=== PATIENT | female | born 1980 | race African-American/Black ===

== ENCOUNTER 2018-05-19 15:20 | Emergency (ER) | payer OTHER ==
[~2018-05-19] VITALS: Ht 160 cm; Wt 112.5 kg
[~2018-05-19 15:20] MED LIST: PRED50TA PO
[2018-05-19] MEDS ORDERED: IV NORMAL SALINE 1000ML BAG 1,000 ML IV ONE (15:30)
--- NOTE | 2018-05-19 15:39 | PHYS DOC ---
Past Medical History Past Medical History: High Cholesterol, Hypertension Additional Past Medical Histor: "pre diabetic", sleep apnea Past Surgical History: , Tubal ligation Alcohol Use: None Drug Use: None Adult General Chief Complaint Chief Complaint: NAUSEA/VOMITING/DIARRHA HPI HPI Patient is a 37 year old female with history of hypertension, high cholesterol , who presents to the ED today complaining of nausea, vomiting, diarrhea, abdominal cramping, symptoms began a couple minutes prior to coming to the ED. Patient works at [employer] in the [employer]. Patient denies any fever, denies any hematemesis or melena. Review of Systems Review of Systems Constitutional: Denies fever or chills [] Eyes: Denies change in visual acuity, redness, or eye pain [] HENT: Denies nasal congestion or sore throat [] Respiratory: Denies cough or shortness of breath [] Cardiovascular: No additional information not addressed in HPI [] GI: Reports abdominal cramping, nausea vomiting and diarrhea : Denies dysuria or hematuria [] Musculoskeletal: Denies back pain or joint pain [] Integument: Denies rash or skin lesions [] Neurologic: Denies headache, focal weakness or sensory changes [] All other systems were reviewed and found to be within normal limits, except as documented in this note. Current Medications Current Medications Current Medications Medications (Trade) Dose Ordered Sig/Rj Start Time Stop Time Status Last Admin Dose Admin Dicyclomine HCl (Bentyl) 20 mg 1X ONCE 05/19/18 15:45 05/19/18 15:46 DC 05/19/18 15:57 20 MG Famotidine (Pepcid Vial) 20 mg 1X ONCE 05/19/18 15:45 05/19/18 15:46 DC 05/19/18 15:51 20 MG Ondansetron HCl (Zofran) 4 mg 1X ONCE 05/19/18 15:45 05/19/18 15:46 DC 05/19/18 15:54 4 MG Sodium Chloride 1,000 ml @ 1,000 mls/hr 1X ONCE 05/19/18 15:30 05/19/18 16:29 DC 05/19/18 15:46 1,000 MLS/HR Allergies Allergies Allergies Coded Allergies Type Severity Reaction Last Updated Verified No Known Drug Allergies 05/16/13 No Physical Exam Physical Exam Constitutional: Well developed, well nourished, no acute distress, non-toxic appearance. [] HENT: Normocephalic, atraumatic, bilateral external ears normal, oropharynx moist, no oral exudates, nose normal. [] Eyes: PERRLA, EOMI, conjunctiva normal, no discharge. [] Neck: Normal range of motion, no tenderness, supple, no stridor. [] Cardiovascular:Heart rate regular rhythm, no murmur [] Lungs & Thorax: Bilateral breath sounds clear to auscultation [] Abdomen: Bowel sounds normal, soft, no tenderness, no masses, no pulsatile masses. [] Skin: Warm, dry, no erythema, no rash. [] Back: No tenderness, no CVA tenderness. [] Extremities: No tenderness, no cyanosis, no clubbing, ROM intact, no edema. [] Neurologic: Alert and oriented X 3, normal motor function, normal sensory function, no focal deficits noted. [] Psychologic: Affect normal, judgement normal, mood normal. [] Current Patient Data Vital Signs Vital Signs Date Time Temp Pulse Resp B/P (MAP) Pulse Ox O2 Delivery O2 Flow Rate FiO2 05/19/18 17:39 83 16 172/85 (114) 99 Room Air 05/19/18 15:26 98.1 98.1 Lab Values Laboratory Tests Test 05/19/18 16:30 05/19/18 17:35 White Blood Count 11.1 x10^3/uL (4.0-11.0) H Red Blood Count 4.68 x10^6/uL (3.50-5.40) Hemoglobin 13.4 g/dL (12.0-15.5) Hematocrit 42.5 % (36.0-47.0) Mean Corpuscular Volume 91 fL (79-100) Mean Corpuscular Hemoglobin 29 pg (25-35) Mean Corpuscular Hemoglobin Concent 32 g/dL (31-37) Red Cell Distribution Width 13.8 % (11.5-14.5) Platelet Count 337 x10^3/uL (140-400) Neutrophils (%) (Auto) 75 % (31-73) H Lymphocytes (%) (Auto) 19 % (24-48) L Monocytes (%) (Auto) 6 % (0-9) Eosinophils (%) (Auto) 0 % (0-3) Basophils (%) (Auto) 0 % (0-3) Neutrophils # (Auto) 8.3 x10^3uL (1.8-7.7) H Lymphocytes # (Auto) 2.1 x10^3/uL (1.0-4.8) Monocytes # (Auto) 0.6 x10^3/uL (0.0-1.1) Eosinophils # (Auto) 0.0 x10^3/uL (0.0-0.7) Basophils # (Auto) 0.0 x10^3/uL (0.0-0.2) Sodium Level 138 mmol/L (136-145) Potassium Level 4.5 mmol/L (3.5-5.1) Chloride Level 103 mmol/L (98-107) Carbon Dioxide Level 24 mmol/L (21-32) Anion Gap 11 (6-14) Blood Urea Nitrogen 12 mg/dL (7-20) Creatinine 0.9 mg/dL (0.6-1.0) Estimated GFR (Cockcroft-Gault) 85.2 BUN/Creatinine Ratio 13 (6-20) Glucose Level 123 mg/dL (70-99) H Calcium Level 9.1 mg/dL (8.5-10.1) Total Bilirubin 0.3 mg/dL (0.2-1.0) Aspartate Amino Transferase (AST) 17 U/L (15-37) Alanine Aminotransferase (ALT) 21 U/L (14-59) Alkaline Phosphatase 115 U/L (46-116) Total Protein 8.4 g/dL (6.4-8.2) H Albumin 3.8 g/dL (3.4-5.0) Albumin/Globulin Ratio 0.8 (1.0-1.7) L Lipase 77 U/L (73-393) Ethyl Alcohol Level < 10 mg/dL (0-10) Urine Collection Type Void Urine Color Yellow Urine Clarity Clear Urine pH 6.0 Urine Specific [place]arlan 1.020 Urine Protein Negative mg/dL (NEG-TRACE) Urine Glucose (UA) Negative mg/dL (NEG) Urine Ketones (Stick) Negative mg/dL (NEG) Urine Blood Negative (NEG) Urine Nitrite Negative (NEG) Urine Bilirubin Negative (NEG) Urine Urobilinogen Dipstick 0.2 mg/dL (0.2 mg/dL) Urine Leukocyte Esterase Negative (NEG) Urine RBC 0 /HPF (0-2) Urine WBC 0 /HPF (0-4) Urine Squamous Epithelial Cells Occ /LPF Urine Bacteria 0 /HPF (0-FEW) Urine Mucus Slight /LPF Urine Opiates Screen Neg (NEG) Urine Methadone Screen Neg (NEG) Urine Barbiturates Neg (NEG) Urine Phencyclidine Screen Neg (NEG) Urine Amphetamine/Methamphetamine Pos (NEG) Urine Benzodiazepines Screen Neg (NEG) Urine Cocaine Screen Pos (NEG) Urine Cannabinoids Screen Neg (NEG) Urine Ethyl Alcohol Neg (NEG) Laboratory Tests 05/19/18 16:30 Laboratory Tests 05/19/18 16:30 EKG EKG [] Radiology/Procedures Radiology/Procedures [] Course & Med Decision Making Course & Med Decision Making Pertinent Labs and Imaging studies reviewed. (See chart for details) This is a 37-year-old female patient presenting to the ED today complaining of nausea vomiting and diarrhea as well as abdominal cramping, symptoms began a couple minutes prior to coming to the ED. Patient is in no distress. She states after further interrogation that she was out last night with a couple friends and they partied very had used drugs including meth and cocaine. She also states they drank Labs are negative for any acute findings. Patient was given a liter of fluid Zofran and Pepcid. Feeling better. Discharged to home. Before she left she was up eating with no distress. Dragon Disclaimer Dragon Disclaimer This electronic medical record was generated, in whole or in part, using a voice recognition dictation system. Departure Departure Impression: Primary Impression: Vomiting and diarrhea Additional Impression: Drug abuse Disposition: 01 HOME, SELF-CARE Condition: STABLE Referrals: NO PCP (PCP) Follow-up with your doctor in 1-2 weeks Patient Instructions: Diarrhea, Nausea and Vomiting Additional Instructions: You were evaluated in the emergency room for nausea vomiting and diarrhea. We put to medications. Take them as prescribed. Follow-up with your doctor in 1-2 weeks. Scripts Ondansetron (ONDANSETRON ODT) 4 Mg Tab.rapdis 1 TAB PO PRN Q6-8HRS, #16 TAB Prov: YANIRA GONZALES TE[employer]VISION INST[employer]ER 05/19/18 Problem Qualifiers YANIRA GONZALES TELEVISION INSTALLER May 19, 2018 15:39
[2018-05-19] MEDS ORDERED: FAMOTIDINE 20 MG/2 ML VIAL IVP ONE (15:45)
[2018-05-19] MEDS ORDERED: ONDANSETRON PF 4 MG/2 ML VIAL. IV ONE (15:45)
[2018-05-19] MEDS ORDERED: DICYCLOMINE HCL 10 MG CAPSULE PO ONE (15:45)
[2018-05-19 16:34] LABS: BASO % 0 % (0-3); EOS % 0 % (0-3); HEMATOCRIT 42.5 % (36.0-47.0); HEMOGLOBIN 13.4 g/dL (12.0-15.5); LYMPH # 2.1 x10^3/uL (1.0-4.8); LYMPH % 19 % (24-48); MEAN CORPUSCULAR HEMOGLOBIN 29 pg (25-35); MEAN CORPUSCULAR HGB CONC 32 g/dL (31-37); MEAN CORPUSCULAR VOLUME 91 fL (79-100); MONO # 0.6 x10^3/uL (0.0-1.1); MONO % 6 % (0-9); NEUT # 8.3 x10^3uL (1.8-7.7); NEUT % 75 % (31-73); PLATELET COUNT 337 x10^3/uL (140-400); RED BLOOD COUNT 4.68 x10^6/uL (3.50-5.40); RED CELL DISTRIBUTION WIDTH 13.8 % (11.5-14.5); WHITE BLOOD COUNT 11.1 x10^3/uL (4.0-11.0)
[2018-05-19 16:42] LABS: CALCIUM 9.1 mg/dL (8.5-10.1); CREATININE 0.9 mg/dL (0.6-1.0); GFR 85.2; POTASSIUM 4.5 mmol/L (3.5-5.1)
[2018-05-19 16:48] LABS: ALBUMIN 3.8 g/dL (3.4-5.0); ALBUMIN/GLOBULIN RATIO 0.8 (1.0-1.7); TOTAL BILIRUBIN 0.3 mg/dL (0.2-1.0); TOTAL PROTEIN 8.4 g/dL (6.4-8.2)
[2018-05-19 17:47] LABS: BILIRUBIN,URINE NEGATIVE (NEG); CLARITY,URINE CLEAR; COLOR,URINE YELLOW; NITRITE,URINE NEGATIVE (NEG); PROTEIN,URINE NEGATIVE (NEG-TRACE); UROBILINOGEN,URINE 0.2 mg/dL (0.2 mg/dL)
[2018-05-19 17:54] LABS: BACTERIA,URINE 0 /HPF (0-FEW); BARBITURATES NEG (NEG); BENZODIAZEPINES NEG (NEG); CANNABINOIDS NEG (NEG); COCAINE POS (NEG); METHADONE NEG (NEG); OPIATES NEG (NEG); PHENCYCLIDINE NEG (NEG); RBC,URINE 0 /HPF (0-2); SQUAMOUS EPITHELIAL CELL,UR OCC /LPF; WBC,URINE 0 /HPF (0-4)
[2018-05-19 17:57] LABS: AMPHETAMINE/METHAMPHETAMINE POS (NEG)
[2018-05-19] MEDS ORDERED: ONDA4TAB12 PO (18:33)
[2018-05-19 18:39] VITALS: BP 159/96
== END 2018-05-19 18:44 | disposition home or self-care (01) ==
LOC: ER 15:20
DX: R11.2 Nausea with vomiting, unspecified (principal); R19.7 Diarrhea, unspecified; F14.10 Cocaine abuse, uncomplicated; F15.10 Other stimulant abuse, uncomplicated; R10.9 Unspecified abdominal pain; E78.00 Pure hypercholesterolemia, unspecified; I10 Essential (primary) hypertension
CPT/HCPCS: 36415; 80053; 80307; 81001; 83690; 85025; 96361; 96374; 96375; 99283; G0480; J2405; J3490; J7030